=== PATIENT | female | born 1935 | race Caucasian/White ===

== ENCOUNTER 2017-02-19 13:28 | Inpatient (IN) ==
[2017-02-19] MEDS ORDERED: ONDANSETRON 4 MG/2 ML VIAL IV STA (15:08)
[2017-02-19] MEDS ORDERED: SODIUM CHLORIDE 0.9% 1,000 ML IV STA (15:08)
[2017-02-19] MEDS ORDERED: ONDANSETRON 4 MG/2 ML VIAL ONE (15:58)
[2017-02-19 16:09] LABS: Basophils % 0.2 % (0.0-0.8); Eosinophils # 0.1 10*3/uL (0.0-0.87); Hematocrit 36.6 VOL% (35.7-47.0); Hemoglobin 12.4 GM/DL (12.0-16.0); Immature Granulocytes % 0.2 %; Immature Granulocytes Absolute 0.02 #; Lymphocytes # 1.9 10*3/uL (1.4-4.0); Lymphocytes % 21.7 % (21.3-54.2); Mean Corpuscular HGB Conc 33.9 GM/DL (32-36); Mean Corpuscular Hemoglobin 28 PG (27-34); Mean Corpuscular Volume 82.8 FL (87-102); Mean Platelet Volume 10.5 FL (9.6-12.0); Monocytes # 0.6 10*3/uL (0.11-0.8); Monocytes % 7.4 % (1.7-12.7); Neutrophils % 69.5 % (38.7-73.9); Platelet Count 236 T/CUMM (130-400); Red Blood Count 4.42 MC/CUMM (3.8-5.5); White Blood Count 8.6 T/CUMM (4-12)
[2017-02-19 16:37] LABS: Alanine Aminotransferase 19 U/L (13-56); Albumin 3.6 G/DL (3.4-5.0); Alkaline Phosphatase 66 U/L (45-117); Aspartate Amino Transferase 16 U/L (0-37); Blood Urea Nitrogen 27 MG/DL (7-18); Calcium 9.5 MG/DL (8.5-10.1); Glucose 97 MG/DL (74-106); Osmolality,Calculated 266.7 MOS/KG (273-304); Potassium 3.9 MMOL/L (3.5-5.1); Sodium 131 MMOL/L (136-145); Total Protein 7.3 G/DL (6.4-8.3)
[2017-02-19 16:38] LABS: Troponin I Only < 0.015 NG/ML (0.00-0.045)
[2017-02-19] MEDS ORDERED: CYANOCOBALAMIN 1000 MCG/1 ML VIAL IM SCH (18:00)
[2017-02-19] MEDS: SODIUM CHLORIDE 0.9% 1,000 ML IV SCH (18:18)
[2017-02-19] MEDS: ASPIRIN EC 81 MG TABLET PO SCH (18:42)
[2017-02-19] MEDS: ROSUVASTATIN 20 MG TABLET PO SCH (18:42)
[2017-02-19] MEDS: POTASSIUM CHLORIDE 10 MEQ TABLET PO SCH (18:42)
[2017-02-19] MEDS: CALCIUM (CARBONATE)/VITAMIN D 600 MG-400 UNIT TABLET PO SCH (18:42)
[2017-02-19] MEDS: ESTROPIPATE 0.75 MG TABLET PO SCH (18:43)
[2017-02-19] MEDS: COENZYME Q10 100 MG CAPSULE PO SCH (18:43)
[2017-02-19 19:37] LABS: Apearance,Urine CLOUDY (Clear); Blood, Urine Negative (Negative); Glucose,Urine (UA) Negative (Negative); Hyaline Casts,Urine 4 /LPF (0-3); Ketones,Urine 5 mg/dL (Negative); Mucus,Urine Occasional /LPF (Occasional); Nitrite,Urine Negative (Negative); Protein,Urine 100 MG/DL; RBC,Urine 4 /HPF (0-4); Squamous Epithelial Cell,Urine Few /HPF (0-10); Urine Color Amber (Yellow); Urine Specific Gravity 1.017 (1.001-1.035); Urine Urobilinogen < 2.0 EU/DL (0.2-1.0); WBC,Urine 46 /HPF (0-6)
[2017-02-19 19:40] LABS: Bilirubin,Urine Small mg/dL (Negative)
[2017-02-19] MEDS: ONDANSETRON 4 MG/2 ML VIAL IV PRN (20:34)
[2017-02-19] MEDS: PANTOPRAZOLE 40 MG VIAL IV SCH (20:35)
[2017-02-19] MEDS: cefTRIAXone 1,000 MG in SYRINGE 1 EACH IV SCH (22:04)
[2017-02-20] MEDS ORDERED: PROMETHAZINE 25 MG/1 ML VIAL IM ONE (00:30)
[2017-02-20] MEDS: SODIUM CHLORIDE 0.9% 1,000 ML IV SCH ×3 (03:01→20:40)
[2017-02-20 05:30] LABS: Basophils % 0.2 % (0.0-0.8); Eosinophils # 0.2 10*3/uL (0.0-0.87); Eosinophils % 2.6 % (0.00-10.9); Hematocrit 31.8 VOL% (35.7-47.0); Hemoglobin 10.8 GM/DL (12.0-16.0); Immature Granulocytes % 0.2 %; Immature Granulocytes Absolute 0.02 #; Lymphocytes # 1.9 10*3/uL (1.4-4.0); Lymphocytes % 22.6 % (21.3-54.2); Mean Corpuscular Hemoglobin 28 PG (27-34); Mean Corpuscular Volume 82.8 FL (87-102); Mean Platelet Volume 10.4 FL (9.6-12.0); Monocytes # 0.8 10*3/uL (0.11-0.8); Monocytes % 9.7 % (1.7-12.7); Neutrophils # 5.5 10*3/uL (1.4-7.4); Neutrophils % 64.7 % (38.7-73.9); Platelet Count 298 T/CUMM (130-400); Red Blood Count 3.84 MC/CUMM (3.8-5.5); White Blood Count 8.5 T/CUMM (4-12)
[2017-02-20 06:00] LABS: Calcium 8.2 MG/DL (8.5-10.1); Osmolality,Calculated 275.1 MOS/KG (273-304)
[2017-02-20] MEDS: ONDANSETRON 4 MG/2 ML VIAL IV PRN (09:53)
[2017-02-20] MEDS: MORPHINE 2 MG/1 ML SYRINGE IV PRN (10:41)
[2017-02-20] MEDS: PANTOPRAZOLE 40 MG VIAL IV SCH ×2 (13:46→20:42)
[2017-02-20] MEDS: amLODIPine 10 MG TABLET PO SCH (16:21)
[2017-02-20] MEDS: NEBIVOLOL 10 MG TABLET PO SCH (16:21)
[2017-02-20] MEDS: cefTRIAXone 1,000 MG in SYRINGE 1 EACH IV SCH (20:48)
[2017-02-21] MEDS: COENZYME Q10 100 MG CAPSULE PO SCH ×2 (00:33→18:51)
[2017-02-21] MEDS: ASPIRIN EC 81 MG TABLET PO SCH ×2 (00:33→18:51)
[2017-02-21] MEDS: CALCIUM (CARBONATE)/VITAMIN D 600 MG-400 UNIT TABLET PO SCH ×2 (00:33→18:50)
[2017-02-21] MEDS: ESTROPIPATE 0.75 MG TABLET PO SCH ×2 (00:34→18:51)
[2017-02-21] MEDS: ROSUVASTATIN 20 MG TABLET PO SCH ×2 (00:34→18:51)
[2017-02-21] MEDS: POTASSIUM CHLORIDE 10 MEQ TABLET PO SCH ×2 (00:34→18:51)
[2017-02-21] MEDS: ONDANSETRON 4 MG/2 ML VIAL IV PRN ×2 (04:42→20:20)
[2017-02-21] MEDS: SODIUM CHLORIDE 0.9% 1,000 ML IV SCH ×3 (04:46→23:27)
[2017-02-21 06:44] LABS: Basophils % 0.3 % (0.0-0.8); Eosinophils # 0.1 10*3/uL (0.0-0.87); Hematocrit 33.2 VOL% (35.7-47.0); Immature Granulocytes % 0.3 %; Immature Granulocytes Absolute 0.03 #; Lymphocytes # 1.5 10*3/uL (1.4-4.0); Lymphocytes % 16.2 % (21.3-54.2); Mean Corpuscular HGB Conc 33.1 GM/DL (32-36); Mean Corpuscular Hemoglobin 28 PG (27-34); Mean Corpuscular Volume 83.8 FL (87-102); Mean Platelet Volume 10.6 FL (9.6-12.0); Monocytes # 0.8 10*3/uL (0.11-0.8); Monocytes % 8.1 % (1.7-12.7); Neutrophils # 6.9 10*3/uL (1.4-7.4); Neutrophils % 74.1 % (38.7-73.9); Platelet Count 299 T/CUMM (130-400); Red Blood Count 3.96 MC/CUMM (3.8-5.5); White Blood Count 9.3 T/CUMM (4-12)
[2017-02-21 07:07] LABS: Calcium 8.5 MG/DL (8.5-10.1); Osmolality,Calculated 285.1 MOS/KG (273-304); Potassium 3.6 MMOL/L (3.5-5.1)
[2017-02-21] MEDS: PROMETHAZINE 25 MG/1 ML VIAL IM PRN (08:00)
[2017-02-21] MEDS ORDERED: LIDOCAINE 2% 5 ML VIAL ONE (13:10)
[2017-02-21] MEDS ORDERED: PROPOFOL 200 MG/20 ML VIAL IV ONE (13:10)
[2017-02-21] MEDS: PANTOPRAZOLE 40 MG VIAL IV SCH ×2 (14:47→20:21)
[2017-02-21] MEDS: amLODIPine 10 MG TABLET PO SCH (14:47)
[2017-02-21] MEDS: NEBIVOLOL 10 MG TABLET PO SCH (14:47)
[2017-02-21] MEDS: MORPHINE 2 MG/1 ML SYRINGE IV PRN (20:16)
[2017-02-21] MEDS: cefTRIAXone 1,000 MG in SYRINGE 1 EACH IV SCH (20:24)
[2017-02-22] MEDS: ONDANSETRON 4 MG/2 ML VIAL IV PRN ×3 (02:34→19:52)
[2017-02-22] MEDS: SODIUM CHLORIDE 0.9% 1,000 ML IV SCH ×2 (07:26→13:18)
[2017-02-22] MEDS: amLODIPine 10 MG TABLET PO SCH (09:12)
[2017-02-22] MEDS: NEBIVOLOL 10 MG TABLET PO SCH (09:12)
[2017-02-22] MEDS: PANTOPRAZOLE 40 MG VIAL IV SCH ×2 (10:01→20:25)
[2017-02-22] MEDS: ALBUTEROL/IPRATROPIUM 3 ML NEB RESP TX SCH ×2 (15:00→19:28)
[2017-02-22] MEDS: MORPHINE 2 MG/1 ML SYRINGE IV PRN (15:13)
[2017-02-22] MEDS: ROSUVASTATIN 20 MG TABLET PO SCH (18:01)
[2017-02-22] MEDS: COENZYME Q10 100 MG CAPSULE PO SCH (18:01)
[2017-02-22] MEDS: ASPIRIN EC 81 MG TABLET PO SCH (18:01)
[2017-02-22] MEDS: POTASSIUM CHLORIDE 10 MEQ TABLET PO SCH (18:01)
[2017-02-22] MEDS: CALCIUM (CARBONATE)/VITAMIN D 600 MG-400 UNIT TABLET PO SCH (18:01)
[2017-02-22] MEDS: ESTROPIPATE 0.75 MG TABLET PO SCH (18:01)
[2017-02-22] MEDS: cefTRIAXone 1,000 MG in SYRINGE 1 EACH IV SCH (20:28)
[2017-02-22] MEDS: PROMETHAZINE 25 MG/1 ML VIAL IM PRN (22:26)
[2017-02-23] MEDS: ALBUTEROL/IPRATROPIUM 3 ML NEB RESP TX SCH ×8 (03:40→23:35)
[2017-02-23] MEDS ORDERED: cefOXitin 2,000 MG in SYRINGE 1 EACH IV ONE (06:00)
[2017-02-23 06:51] LABS: Basophils % 0.3 % (0.0-0.8); Eosinophils # 0.1 10*3/uL (0.0-0.87); Eosinophils % 0.8 % (0.00-10.9); Hematocrit 34.3 VOL% (35.7-47.0); Hemoglobin 11.6 GM/DL (12.0-16.0); Immature Granulocytes % 0.7 %; Immature Granulocytes Absolute 0.07 #; Lymphocytes # 1.4 10*3/uL (1.4-4.0); Lymphocytes % 14.4 % (21.3-54.2); Mean Corpuscular HGB Conc 33.8 GM/DL (32-36); Mean Corpuscular Hemoglobin 28 PG (27-34); Mean Corpuscular Volume 83.5 FL (87-102); Mean Platelet Volume 10.5 FL (9.6-12.0); Monocytes # 0.8 10*3/uL (0.11-0.8); Monocytes % 8.2 % (1.7-12.7); Neutrophils # 7.2 10*3/uL (1.4-7.4); Neutrophils % 75.6 % (38.7-73.9); Platelet Count 351 T/CUMM (130-400); Red Blood Count 4.11 MC/CUMM (3.8-5.5); Red Cell Distribution Width 14.6 % (9.3-17.3); White Blood Count 9.6 T/CUMM (4-12)
[2017-02-23 07:20] LABS: Calcium 9.2 MG/DL (8.5-10.1); Magnesium 1.6 MG/DL (1.8-2.4); Potassium 3.2 MMOL/L (3.5-5.1)
[2017-02-23] MEDS: POTASSIUM CHLORIDE RIDER 10 MEQ in PREMIX 1 EACH IV PRN (07:43)
[2017-02-23] MEDS: amLODIPine 10 MG TABLET PO SCH (08:24)
[2017-02-23] MEDS: NEBIVOLOL 10 MG TABLET PO SCH (08:24)
[2017-02-23] MEDS: SODIUM CHLORIDE 0.9% 1,000 ML IV SCH ×2 (08:46→20:04)
[2017-02-23] MEDS: PANTOPRAZOLE 40 MG VIAL IV SCH ×2 (08:47→20:04)
[2017-02-23] MEDS ORDERED: PROPOFOL 200 MG/20 ML VIAL IV ONE ×2 (09:45→11:09)
[2017-02-23] MEDS ORDERED: DEXAMETHASONE 10 MG/1 ML VIAL ONE ×2 (09:45→11:09)
[2017-02-23] MEDS ORDERED: LIDOCAINE 2% 5 ML VIAL ONE (09:45)
[2017-02-23] MEDS ORDERED: PHENYLEPHRINE 1 MG/10 ML SYRINGE IV ONE (09:45)
[2017-02-23] MEDS ORDERED: SUCCINYLCHOLINE 200 MG/10 ML VIAL ONE ×2 (09:45→11:10)
[2017-02-23] MEDS ORDERED: KETOROLAC 30 MG/1 ML VIAL ONE ×2 (09:45→11:10)
[2017-02-23] MEDS ORDERED: ROCURONIUM 100 MG/10 ML VIAL IV ONE ×2 (09:45→11:10)
[2017-02-23] MEDS ORDERED: NEOSTIGMINE 10 MG/10 ML VIAL ONE (09:45)
[2017-02-23] MEDS ORDERED: ONDANSETRON 4 MG/2 ML VIAL ONE ×3 (09:45→11:25)
[2017-02-23] MEDS ORDERED: SUGAMMADEX 200 MG/2 ML VIAL IV ONE (10:48)
[2017-02-23] MEDS ORDERED: fentaNYL 100 MCG/2 ML VIAL ONE (11:09)
[2017-02-23] MEDS ORDERED: SEVOFLURANE 1 UNIT/15 MINUTE INH ONE (11:10)
[2017-02-23] MEDS ORDERED: LACTATED RINGERS 1,000 ML IV ONE (11:10)
[2017-02-23] MEDS ORDERED: ACETAMINOPHEN 1,000 MG/100 ML VIAL IV ONE (11:10)
[2017-02-23 11:13] LABS: Apearance,Urine CLEAR (Clear); Bilirubin,Urine Negative (Negative); Blood, Urine Small mg/dL (Negative); Glucose,Urine (UA) Negative (Negative); Ketones,Urine 80 mg/dL (Negative); Nitrite,Urine Negative (Negative); Protein,Urine Negative; RBC,Urine <1 /HPF (0-4); Squamous Epithelial Cell,Urine Occasional /HPF (0-10); Urine Color Straw (Yellow); Urine Specific Gravity 1.009 (1.001-1.035); Urine Urobilinogen < 2.0 EU/DL (0.2-1.0); WBC,Urine 1 /HPF (0-6)
[2017-02-23] MEDS ORDERED: ONDANSETRON 4 MG/2 ML VIAL IV PRN (11:23)
[2017-02-23] MEDS: HYDROmorphone 2 MG/1 ML VIAL IV PRN ×3 (11:30→11:40)
[2017-02-23] MEDS: CALCIUM (CARBONATE)/VITAMIN D 600 MG-400 UNIT TABLET PO SCH (18:44)
[2017-02-23] MEDS: ASPIRIN EC 81 MG TABLET PO SCH (18:44)
[2017-02-23] MEDS: COENZYME Q10 100 MG CAPSULE PO SCH (18:44)
[2017-02-23] MEDS: ROSUVASTATIN 20 MG TABLET PO SCH (18:44)
[2017-02-23] MEDS: ESTROPIPATE 0.75 MG TABLET PO SCH (20:02)
[2017-02-23] MEDS: cefTRIAXone 1,000 MG in SYRINGE 1 EACH IV SCH (20:06)
[2017-02-23] MEDS: POTASSIUM CHLORIDE 10 MEQ TABLET PO SCH (20:06)
[2017-02-24] MEDS: ALBUTEROL/IPRATROPIUM 3 ML NEB RESP TX SCH ×5 (03:28→19:59)
[2017-02-24 07:10] LABS: Calcium 8.9 MG/DL (8.5-10.1); Potassium 3.1 MMOL/L (3.5-5.1)
[2017-02-24] MEDS: amLODIPine 10 MG TABLET PO SCH (08:12)
[2017-02-24] MEDS: NEBIVOLOL 10 MG TABLET PO SCH (08:12)
[2017-02-24] MEDS: MORPHINE 2 MG/1 ML SYRINGE IV PRN ×3 (08:12→21:02)
[2017-02-24] MEDS: PANTOPRAZOLE 40 MG VIAL IV SCH ×2 (08:13→20:33)
[2017-02-24] MEDS: POTASSIUM CHLORIDE RIDER 10 MEQ in PREMIX 1 EACH IV PRN (08:13)
[2017-02-24] MEDS ORDERED: DEXTROSE 5% LACTATED RINGERS 1,000 ML IV SCH (11:30)
[2017-02-24] MEDS: POTASSIUM CHLORIDE RIDER 10 MEQ in PREMIX 1 EACH IV SCH ×2 (12:11→17:35)
[2017-02-24] MEDS: POTASSIUM CHLORIDE INJ 30 MEQ in DEXTROSE 5% LACTATED RINGERS 1,000 ML IV SCH (12:11)
[2017-02-24 17:30] LABS: Hematocrit 28.9 VOL% (35.7-47.0)
[2017-02-24] MEDS: CALCIUM (CARBONATE)/VITAMIN D 600 MG-400 UNIT TABLET PO SCH ×2 (17:36→18:07)
[2017-02-24] MEDS: ROSUVASTATIN 20 MG TABLET PO SCH ×2 (17:36→18:07)
[2017-02-24] MEDS: ESTROPIPATE 0.75 MG TABLET PO SCH ×2 (17:36→18:07)
[2017-02-24] MEDS: ASPIRIN EC 81 MG TABLET PO SCH ×2 (17:36→18:07)
[2017-02-24] MEDS: COENZYME Q10 100 MG CAPSULE PO SCH (17:55)
[2017-02-24] MEDS: cefTRIAXone 1,000 MG in SYRINGE 1 EACH IV SCH (20:32)
[2017-02-25] MEDS: ALBUTEROL/IPRATROPIUM 3 ML NEB RESP TX SCH ×7 (00:49→23:40)
[2017-02-25] MEDS: POTASSIUM CHLORIDE INJ 30 MEQ in DEXTROSE 5% LACTATED RINGERS 1,000 ML IV SCH ×3 (02:52→15:53)
[2017-02-25 05:42] LABS: Basophils % 0.2 % (0.0-0.8); Eosinophils # 0.1 10*3/uL (0.0-0.87); Eosinophils % 0.5 % (0.00-10.9); Hematocrit 28.5 VOL% (35.7-47.0); Hemoglobin 9.6 GM/DL (12.0-16.0); Immature Granulocytes % 0.7 %; Immature Granulocytes Absolute 0.11 #; Lymphocytes # 1.9 10*3/uL (1.4-4.0); Lymphocytes % 12.8 % (21.3-54.2); Mean Corpuscular HGB Conc 33.7 GM/DL (32-36); Mean Corpuscular Hemoglobin 28 PG (27-34); Mean Corpuscular Volume 82.1 FL (87-102); Mean Platelet Volume 11.1 FL (9.6-12.0); Monocytes # 0.6 10*3/uL (0.11-0.8); Monocytes % 3.8 % (1.7-12.7); Platelet Count 291 T/CUMM (130-400); Red Blood Count 3.47 MC/CUMM (3.8-5.5); Red Cell Distribution Width 14.6 % (9.3-17.3); White Blood Count 14.7 T/CUMM (4-12)
[2017-02-25 06:21] LABS: Calcium 8.7 MG/DL (8.5-10.1); Magnesium 1.6 MG/DL (1.8-2.4); Osmolality,Calculated 286.8 MOS/KG (273-304)
[2017-02-25] MEDS ORDERED: MAGNESIUM SULFATE 1 GM/2 ML VIAL IM ONE (07:27)
[2017-02-25] MEDS: POTASSIUM CHLORIDE 20 MEQ/15 ML UDCUP PO SCH ×4 (08:53→22:16)
[2017-02-25] MEDS: PANTOPRAZOLE 40 MG VIAL IV SCH ×2 (08:53→22:58)
[2017-02-25] MEDS: amLODIPine 10 MG TABLET PO SCH (08:54)
[2017-02-25] MEDS: NEBIVOLOL 10 MG TABLET PO SCH (08:54)
[2017-02-25] MEDS: VALSARTAN 160 MG TABLET PO SCH (08:54)
[2017-02-25] MEDS: MORPHINE 2 MG/1 ML SYRINGE IV PRN ×2 (17:42→23:04)
[2017-02-25] MEDS: CALCIUM (CARBONATE)/VITAMIN D 600 MG-400 UNIT TABLET PO SCH (21:59)
[2017-02-25] MEDS: ESTROPIPATE 0.75 MG TABLET PO SCH (22:00)
[2017-02-25] MEDS: COENZYME Q10 100 MG CAPSULE PO SCH (22:00)
[2017-02-25] MEDS: ROSUVASTATIN 20 MG TABLET PO SCH (22:00)
[2017-02-25] MEDS: ASPIRIN EC 81 MG TABLET PO SCH (22:00)
[2017-02-25] MEDS ORDERED: POTASSIUM CHLORIDE 20 MEQ/15 ML UDCUP PO SCH (22:30)
[2017-02-25] MEDS: cefTRIAXone 1,000 MG in SYRINGE 1 EACH IV SCH (22:59)
[2017-02-26] MEDS: ALBUTEROL/IPRATROPIUM 3 ML NEB RESP TX SCH ×6 (03:04→23:30)
[2017-02-26] MEDS: POTASSIUM CHLORIDE INJ 30 MEQ in DEXTROSE 5% LACTATED RINGERS 1,000 ML IV SCH ×2 (03:43→17:17)
[2017-02-26 06:12] LABS: Calcium 8.3 MG/DL (8.5-10.1); Osmolality,Calculated 277.4 MOS/KG (273-304); Potassium 4.8 MMOL/L (3.5-5.1)
[2017-02-26] MEDS: PANTOPRAZOLE 40 MG VIAL IV SCH ×2 (08:41→21:30)
[2017-02-26] MEDS: amLODIPine 10 MG TABLET PO SCH (08:41)
[2017-02-26] MEDS: NEBIVOLOL 10 MG TABLET PO SCH (08:41)
[2017-02-26] MEDS: VALSARTAN 160 MG TABLET PO SCH (08:41)
[2017-02-26] MEDS ORDERED: BENZOCAINE/MENTHOL LOZENGE 18/BOX PO PRN (09:36)
[2017-02-26] MEDS: NYSTATIN 500,000 UNIT/5 ML UDCUP SWISH/SWAL SCH ×3 (10:15→21:29)
[2017-02-26] MEDS: MORPHINE 2 MG/1 ML SYRINGE IV PRN ×2 (13:06→21:30)
[2017-02-26] MEDS: ROSUVASTATIN 20 MG TABLET PO SCH (21:29)
[2017-02-26] MEDS: CALCIUM (CARBONATE)/VITAMIN D 600 MG-400 UNIT TABLET PO SCH (21:29)
[2017-02-26] MEDS: ESTROPIPATE 0.75 MG TABLET PO SCH (21:29)
[2017-02-26] MEDS: ASPIRIN EC 81 MG TABLET PO SCH (21:29)
[2017-02-26] MEDS: ONDANSETRON 4 MG/2 ML VIAL IV PRN (21:30)
[2017-02-26] MEDS: cefTRIAXone 1,000 MG in SYRINGE 1 EACH IV SCH (21:31)
[2017-02-26] MEDS: COENZYME Q10 100 MG CAPSULE PO SCH (22:12)
[2017-02-27] MEDS: ALBUTEROL/IPRATROPIUM 3 ML NEB RESP TX SCH ×6 (02:33→23:30)
[2017-02-27 06:13] LABS: Calcium 9.1 MG/DL (8.5-10.1); Osmolality,Calculated 269.8 MOS/KG (273-304); Potassium 4.6 MMOL/L (3.5-5.1)
[2017-02-27] MEDS: POTASSIUM CHLORIDE INJ 30 MEQ in DEXTROSE 5% LACTATED RINGERS 1,000 ML IV SCH (06:40)
[2017-02-27] MEDS: NYSTATIN 500,000 UNIT/5 ML UDCUP SWISH/SWAL SCH (08:30)
[2017-02-27] MEDS: VALSARTAN 160 MG TABLET PO SCH (08:30)
[2017-02-27] MEDS: amLODIPine 10 MG TABLET PO SCH (08:31)
[2017-02-27] MEDS: PANTOPRAZOLE 40 MG VIAL IV SCH ×3 (08:31→20:01)
[2017-02-27] MEDS: NEBIVOLOL 10 MG TABLET PO SCH (08:31)
[2017-02-27 12:09] LABS: Albumin 2.4 G/DL (3.4-5.0); Bilirubin,Total 0.5 MG/DL (0.2-1.0); Calcium 9.2 MG/DL (8.5-10.1); Osmolality,Calculated 267.1 MOS/KG (273-304); Potassium 4.4 MMOL/L (3.5-5.1); Total Protein 5.3 G/DL (6.4-8.3)
[2017-02-27] MEDS ORDERED: GLUCAGON 1 MG VIAL IM PRN (13:48)
[2017-02-27] MEDS ORDERED: DEXTROSE 50% 25 GM/50 ML VIAL IV PRN (13:48)
[2017-02-27] MEDS ORDERED: AMINO ACIDS/DEXT/LYTES 4.25-5% 2,000 ML IV SCH (14:00)
[2017-02-27] MEDS ORDERED: TRACE ELEMENTS (5) 1 ML, MULTIVITAMIN INJ 10 ML in AMINO ACIDS/DEXT/LYTES 5-15% 1,000 ML IV SCH (17:00)
[2017-02-27] MEDS: FAT EMULSION 20% 250 ML IV SCH (17:06)
[2017-02-27] MEDS: INSULIN LISPRO 100 UNIT/ML SUBCUT SCH (18:05)
[2017-02-27] MEDS: PROMETHAZINE 25 MG/1 ML VIAL IM PRN (19:36)
[2017-02-27] MEDS: MORPHINE 2 MG/1 ML SYRINGE IV PRN (19:36)
[2017-02-27] MEDS: ROSUVASTATIN 20 MG TABLET PO SCH ×2 (19:49→20:01)
[2017-02-27] MEDS: ESTROPIPATE 0.75 MG TABLET PO SCH ×2 (19:49→20:01)
[2017-02-27] MEDS: ASPIRIN EC 81 MG TABLET PO SCH ×2 (19:49→20:01)
[2017-02-27] MEDS: CALCIUM (CARBONATE)/VITAMIN D 600 MG-400 UNIT TABLET PO SCH ×2 (19:49→20:01)
[2017-02-27] MEDS: COENZYME Q10 100 MG CAPSULE PO SCH (20:01)
[2017-02-28] MEDS: INSULIN LISPRO 100 UNIT/ML SUBCUT SCH ×4 (00:04→17:48)
[2017-02-28] MEDS: ALBUTEROL/IPRATROPIUM 3 ML NEB RESP TX SCH ×3 (03:10→11:35)
[2017-02-28 07:02] LABS: Magnesium 1.9 MG/DL (1.8-2.4); Osmolality,Calculated 275.5 MOS/KG (273-304); Phosphorous 2.9 MG/DL (2.5-4.9); Potassium 3.8 MMOL/L (3.5-5.1); Prealbumin 8.6 MG/DL (20-40)
[2017-02-28] MEDS ORDERED: LACTATED RINGERS 1,000 ML IV SCH (08:00)
[2017-02-28] MEDS: PANTOPRAZOLE 40 MG VIAL IV SCH ×2 (08:47→20:22)
[2017-02-28] MEDS: NEBIVOLOL 10 MG TABLET PO SCH (08:49)
[2017-02-28] MEDS: VALSARTAN 160 MG TABLET PO SCH (08:49)
[2017-02-28] MEDS: amLODIPine 10 MG TABLET PO SCH (08:49)
[2017-02-28] MEDS: FAT EMULSION 20% 250 ML IV SCH (15:27)
[2017-02-28] MEDS ORDERED: DEXTROSE 10% 1,000 ML IV PRN (17:00)
[2017-02-28] MEDS: TRACE ELEMENTS (5) 1 ML, MULTIVITAMIN INJ 10 ML in AMINO ACIDS/DEXT/LYTES 5-15% 2,000 ML IV SCH (17:47)
[2017-02-28] MEDS: ESTROPIPATE 0.75 MG TABLET PO SCH (20:22)
[2017-02-28] MEDS: COENZYME Q10 100 MG CAPSULE PO SCH (20:22)
[2017-02-28] MEDS: ROSUVASTATIN 20 MG TABLET PO SCH (20:22)
[2017-02-28] MEDS: CALCIUM (CARBONATE)/VITAMIN D 600 MG-400 UNIT TABLET PO SCH (20:22)
[2017-02-28] MEDS: ASPIRIN EC 81 MG TABLET PO SCH (20:22)
[2017-03-01] MEDS: INSULIN LISPRO 100 UNIT/ML SUBCUT SCH ×4 (00:04→18:28)
[2017-03-01] MEDS: ALBUTEROL/IPRATROPIUM 3 ML NEB RESP TX SCH ×5 (07:27→23:50)
[2017-03-01] MEDS: VALSARTAN 160 MG TABLET PO SCH (08:40)
[2017-03-01] MEDS: NEBIVOLOL 10 MG TABLET PO SCH (08:40)
[2017-03-01] MEDS: amLODIPine 10 MG TABLET PO SCH (08:40)
[2017-03-01] MEDS: PANTOPRAZOLE 40 MG VIAL IV SCH ×2 (08:41→21:06)
[2017-03-01 09:30] LABS: Hematocrit 29.7 VOL% (35.7-47.0); Hemoglobin 9.9 GM/DL (12.0-16.0)
[2017-03-01] MEDS: ENOXAPARIN 40 MG/0.4 ML SYRINGE SUBCUT SCH (09:58)
[2017-03-01] MEDS: MORPHINE 2 MG/1 ML SYRINGE IV PRN ×2 (11:38→19:59)
[2017-03-01] MEDS: FAT EMULSION 20% 250 ML IV SCH (14:42)
[2017-03-01] MEDS: ONDANSETRON 4 MG/2 ML VIAL IV PRN (18:00)
[2017-03-01] MEDS: TRACE ELEMENTS (5) 1 ML, MULTIVITAMIN INJ 10 ML in AMINO ACIDS/DEXT/LYTES 5-15% 2,000 ML IV SCH (18:01)
[2017-03-01] MEDS ORDERED: BISACODYL 10 MG SUPP RECTAL ONE (21:03)
[2017-03-01] MEDS: ROSUVASTATIN 20 MG TABLET PO SCH (21:05)
[2017-03-01] MEDS: ASPIRIN EC 81 MG TABLET PO SCH (21:05)
[2017-03-01] MEDS: CALCIUM (CARBONATE)/VITAMIN D 600 MG-400 UNIT TABLET PO SCH (21:05)
[2017-03-01] MEDS: ESTROPIPATE 0.75 MG TABLET PO SCH (21:06)
[2017-03-01] MEDS: COENZYME Q10 100 MG CAPSULE PO SCH (21:06)
[2017-03-02] MEDS: INSULIN LISPRO 100 UNIT/ML SUBCUT SCH ×4 (01:57→18:01)
[2017-03-02] MEDS: ALBUTEROL/IPRATROPIUM 3 ML NEB RESP TX SCH ×5 (03:29→20:21)
[2017-03-02 07:09] LABS: Basophils % 0.3 % (0.0-0.8); Eosinophils # 0.5 10*3/uL (0.0-0.87); Eosinophils % 4.5 % (0.00-10.9); Immature Granulocytes % 0.5 %; Immature Granulocytes Absolute 0.05 #; Lymphocytes # 1.3 10*3/uL (1.4-4.0); Lymphocytes % 11.7 % (21.3-54.2); Mean Corpuscular HGB Conc 33.3 GM/DL (32-36); Mean Corpuscular Hemoglobin 28 PG (27-34); Mean Corpuscular Volume 84.4 FL (87-102); Mean Platelet Volume 10.6 FL (9.6-12.0); Monocytes % 8.8 % (1.7-12.7); Neutrophils % 74.2 % (38.7-73.9); Platelet Count 299 T/CUMM (130-400); Red Cell Distribution Width 14.2 % (9.3-17.3); White Blood Count 10.8 T/CUMM (4-12)
[2017-03-02] MEDS: ENOXAPARIN 40 MG/0.4 ML SYRINGE SUBCUT SCH (10:07)
[2017-03-02] MEDS: VALSARTAN 160 MG TABLET PO SCH (10:08)
[2017-03-02] MEDS: NEBIVOLOL 10 MG TABLET PO SCH (10:08)
[2017-03-02] MEDS: amLODIPine 10 MG TABLET PO SCH (10:08)
[2017-03-02] MEDS: PANTOPRAZOLE 40 MG VIAL IV SCH ×2 (10:08→21:08)
[2017-03-02] MEDS: DOCUSATE SODIUM 100 MG CAPSULE PO SCH ×2 (12:46→21:08)
[2017-03-02] MEDS: FAT EMULSION 20% 250 ML IV SCH (14:47)
[2017-03-02] MEDS: TRACE ELEMENTS (5) 1 ML, MULTIVITAMIN INJ 10 ML in AMINO ACIDS/DEXT/LYTES 5-15% 2,000 ML IV SCH (17:40)
[2017-03-02] MEDS: ASPIRIN EC 81 MG TABLET PO SCH (21:08)
[2017-03-02] MEDS: COENZYME Q10 100 MG CAPSULE PO SCH (21:08)
[2017-03-02] MEDS: ESTROPIPATE 0.75 MG TABLET PO SCH (21:08)
[2017-03-02] MEDS: ROSUVASTATIN 20 MG TABLET PO SCH (21:08)
[2017-03-02] MEDS: CALCIUM (CARBONATE)/VITAMIN D 600 MG-400 UNIT TABLET PO SCH (21:08)
[2017-03-02] MEDS: MORPHINE 2 MG/1 ML SYRINGE IV PRN (21:39)
[2017-03-03] MEDS: ALBUTEROL/IPRATROPIUM 3 ML NEB RESP TX SCH ×7 (00:03→23:29)
[2017-03-03] MEDS: INSULIN LISPRO 100 UNIT/ML SUBCUT SCH ×4 (03:36→18:09)
[2017-03-03 07:38] LABS: Basophils % 0.4 % (0.0-0.8); Eosinophils # 0.5 10*3/uL (0.0-0.87); Eosinophils % 7.2 % (0.00-10.9); Hematocrit 25.7 VOL% (35.7-47.0); Hemoglobin 8.5 GM/DL (12.0-16.0); Immature Granulocytes % 0.7 %; Immature Granulocytes Absolute 0.05 #; Lymphocytes # 1.2 10*3/uL (1.4-4.0); Lymphocytes % 16.1 % (21.3-54.2); Mean Corpuscular HGB Conc 33.1 GM/DL (32-36); Mean Corpuscular Hemoglobin 28 PG (27-34); Mean Corpuscular Volume 83.7 FL (87-102); Mean Platelet Volume 10.6 FL (9.6-12.0); Monocytes # 0.7 10*3/uL (0.11-0.8); Monocytes % 9.5 % (1.7-12.7); Neutrophils # 4.9 10*3/uL (1.4-7.4); Neutrophils % 66.1 % (38.7-73.9); Platelet Count 336 T/CUMM (130-400); Red Blood Count 3.07 MC/CUMM (3.8-5.5); Red Cell Distribution Width 14.4 % (9.3-17.3); White Blood Count 7.5 T/CUMM (4-12)
[2017-03-03 08:08] LABS: Calcium 8.5 MG/DL (8.5-10.1); Magnesium 1.9 MG/DL (1.8-2.4); Osmolality,Calculated 279.7 MOS/KG (273-304); Phosphorous 3.9 MG/DL (2.5-4.9); Potassium 4.1 MMOL/L (3.5-5.1); Prealbumin 11.2 MG/DL (20-40)
[2017-03-03] MEDS: amLODIPine 10 MG TABLET PO SCH (09:23)
[2017-03-03] MEDS: DOCUSATE SODIUM 100 MG CAPSULE PO SCH ×2 (09:23→20:08)
[2017-03-03] MEDS: PANTOPRAZOLE 40 MG VIAL IV SCH ×2 (09:23→20:08)
[2017-03-03] MEDS: VALSARTAN 160 MG TABLET PO SCH (09:23)
[2017-03-03] MEDS: NEBIVOLOL 10 MG TABLET PO SCH (09:23)
[2017-03-03] MEDS: POLYETHYLENE GLYCOL POWDER 17 GM PACK PO SCH (09:27)
[2017-03-03] MEDS: ENOXAPARIN 40 MG/0.4 ML SYRINGE SUBCUT SCH (09:27)
[2017-03-03] MEDS: TRACE ELEMENTS (5) 1 ML, MULTIVITAMIN INJ 10 ML in AMINO ACIDS/DEXT/LYTES 5-15% 2,000 ML IV SCH (17:20)
[2017-03-03] MEDS: FAT EMULSION 20% 250 ML IV SCH (17:20)
[2017-03-03] MEDS: MORPHINE 2 MG/1 ML SYRINGE IV PRN (17:21)
[2017-03-03] MEDS: CALCIUM (CARBONATE)/VITAMIN D 600 MG-400 UNIT TABLET PO SCH (20:08)
[2017-03-03] MEDS: ASPIRIN EC 81 MG TABLET PO SCH (20:08)
[2017-03-03] MEDS: BISACODYL 10 MG SUPP RECTAL SCH (20:08)
[2017-03-03] MEDS: COENZYME Q10 100 MG CAPSULE PO SCH (20:08)
[2017-03-03] MEDS: ESTROPIPATE 0.75 MG TABLET PO SCH (20:08)
[2017-03-03] MEDS: ROSUVASTATIN 20 MG TABLET PO SCH (20:08)
[2017-03-04] MEDS: INSULIN LISPRO 100 UNIT/ML SUBCUT SCH ×4 (00:26→17:34)
[2017-03-04] MEDS: ALBUTEROL/IPRATROPIUM 3 ML NEB RESP TX SCH ×6 (04:08→23:06)
[2017-03-04] MEDS: ENOXAPARIN 40 MG/0.4 ML SYRINGE SUBCUT SCH (08:54)
[2017-03-04] MEDS: VALSARTAN 160 MG TABLET PO SCH (08:55)
[2017-03-04] MEDS: DOCUSATE SODIUM 100 MG CAPSULE PO SCH (08:55)
[2017-03-04] MEDS: amLODIPine 10 MG TABLET PO SCH (08:55)
[2017-03-04] MEDS: NEBIVOLOL 10 MG TABLET PO SCH (08:55)
[2017-03-04] MEDS: POLYETHYLENE GLYCOL POWDER 17 GM PACK PO SCH (08:56)
[2017-03-04] MEDS: PANTOPRAZOLE 40 MG VIAL IV SCH ×2 (08:56→20:35)
[2017-03-04] MEDS: BISACODYL 10 MG SUPP RECTAL SCH ×2 (08:56→20:36)
[2017-03-04] MEDS: FAT EMULSION 20% 250 ML IV SCH (16:20)
[2017-03-04] MEDS: TRACE ELEMENTS (5) 1 ML, MULTIVITAMIN INJ 10 ML in AMINO ACIDS/DEXT/LYTES 5-15% 2,000 ML IV SCH (16:47)
[2017-03-04] MEDS: MORPHINE 2 MG/1 ML SYRINGE IV PRN (20:36)
[2017-03-04] MEDS: ROSUVASTATIN 20 MG TABLET PO SCH (20:36)
[2017-03-04] MEDS: CALCIUM (CARBONATE)/VITAMIN D 600 MG-400 UNIT TABLET PO SCH (20:36)
[2017-03-04] MEDS: ESTROPIPATE 0.75 MG TABLET PO SCH (20:36)
[2017-03-04] MEDS: COENZYME Q10 100 MG CAPSULE PO SCH (20:36)
[2017-03-04] MEDS: ASPIRIN EC 81 MG TABLET PO SCH (20:36)
[2017-03-05] MEDS: INSULIN LISPRO 100 UNIT/ML SUBCUT SCH ×4 (00:56→17:14)
[2017-03-05 03:21] LABS: Basophils % 0.4 % (0.0-0.8); Eosinophils # 0.5 10*3/uL (0.0-0.87); Eosinophils % 5.8 % (0.00-10.9); Hematocrit 25.2 VOL% (35.7-47.0); Hemoglobin 8.3 GM/DL (12.0-16.0); Immature Granulocytes % 0.6 %; Immature Granulocytes Absolute 0.05 #; Lymphocytes # 1.5 10*3/uL (1.4-4.0); Lymphocytes % 18.3 % (21.3-54.2); Mean Corpuscular HGB Conc 32.9 GM/DL (32-36); Mean Corpuscular Hemoglobin 28 PG (27-34); Mean Corpuscular Volume 85.4 FL (87-102); Mean Platelet Volume 10.4 FL (9.6-12.0); Monocytes # 0.6 10*3/uL (0.11-0.8); Monocytes % 7.8 % (1.7-12.7); Neutrophils # 5.4 10*3/uL (1.4-7.4); Neutrophils % 67.1 % (38.7-73.9); Platelet Count 353 T/CUMM (130-400); Red Blood Count 2.95 MC/CUMM (3.8-5.5); Red Cell Distribution Width 14.4 % (9.3-17.3); White Blood Count 8.1 T/CUMM (4-12)
[2017-03-05] MEDS: ALBUTEROL/IPRATROPIUM 3 ML NEB RESP TX SCH ×5 (03:48→20:29)
[2017-03-05] MEDS: POLYETHYLENE GLYCOL POWDER 17 GM PACK PO SCH (08:25)
[2017-03-05] MEDS: amLODIPine 10 MG TABLET PO SCH (08:25)
[2017-03-05] MEDS: ENOXAPARIN 40 MG/0.4 ML SYRINGE SUBCUT SCH (08:25)
[2017-03-05] MEDS: NEBIVOLOL 10 MG TABLET PO SCH (08:25)
[2017-03-05] MEDS: VALSARTAN 160 MG TABLET PO SCH (08:25)
[2017-03-05] MEDS ORDERED: DOCUSATE SODIUM 100 MG CAPSULE PO SCH (09:00)
[2017-03-05] MEDS: PANTOPRAZOLE 40 MG TABLET PO SCH ×2 (10:30→20:51)
[2017-03-05] MEDS: FAT EMULSION 20% 250 ML IV SCH (14:56)
[2017-03-05] MEDS: TRACE ELEMENTS (5) 1 ML, MULTIVITAMIN INJ 10 ML in AMINO ACIDS/DEXT/LYTES 5-15% 2,000 ML IV SCH (17:15)
[2017-03-05] MEDS: ESTROPIPATE 0.75 MG TABLET PO SCH (20:51)
[2017-03-05] MEDS: MORPHINE 2 MG/1 ML SYRINGE IV PRN (20:51)
[2017-03-05] MEDS: CALCIUM (CARBONATE)/VITAMIN D 600 MG-400 UNIT TABLET PO SCH (20:51)
[2017-03-05] MEDS: ASPIRIN EC 81 MG TABLET PO SCH (20:51)
[2017-03-05] MEDS: COENZYME Q10 100 MG CAPSULE PO SCH (20:51)
[2017-03-05] MEDS: ROSUVASTATIN 20 MG TABLET PO SCH (20:51)
[2017-03-06] MEDS: INSULIN LISPRO 100 UNIT/ML SUBCUT SCH ×2 (00:20→06:02)
[2017-03-06] MEDS: ALBUTEROL/IPRATROPIUM 3 ML NEB RESP TX SCH ×6 (00:36→20:03)
[2017-03-06 07:22] LABS: Calcium 8.9 MG/DL (8.5-10.1); Magnesium 2.2 MG/DL (1.8-2.4); Osmolality,Calculated 274.8 MOS/KG (273-304); Phosphorous 4.4 MG/DL (2.5-4.9); Potassium 4.3 MMOL/L (3.5-5.1); Prealbumin 16.9 MG/DL (20-40)
[2017-03-06] MEDS ORDERED: SODIUM CHLORIDE 0.9% 1,000 ML IV PRN (08:19)
[2017-03-06] MEDS ORDERED: TUBERCULIN SKIN TEST 0.1 ML SYRINGE INTRADERM ONE (09:00)
[2017-03-06] MEDS: PANTOPRAZOLE 40 MG TABLET PO SCH ×2 (09:07→21:40)
[2017-03-06] MEDS: VALSARTAN 160 MG TABLET PO SCH (09:07)
[2017-03-06] MEDS: amLODIPine 10 MG TABLET PO SCH (09:07)
[2017-03-06] MEDS: NEBIVOLOL 10 MG TABLET PO SCH (09:07)
[2017-03-06] MEDS: POLYETHYLENE GLYCOL POWDER 17 GM PACK PO SCH (09:08)
[2017-03-06] MEDS: ENOXAPARIN 40 MG/0.4 ML SYRINGE SUBCUT SCH (09:08)
[2017-03-06] MEDS: MORPHINE 2 MG/1 ML SYRINGE IV PRN (13:04)
[2017-03-06] MEDS: ASPIRIN EC 81 MG TABLET PO SCH (21:38)
[2017-03-06] MEDS: CALCIUM (CARBONATE)/VITAMIN D 600 MG-400 UNIT TABLET PO SCH (21:39)
[2017-03-06] MEDS: COENZYME Q10 100 MG CAPSULE PO SCH (21:39)
[2017-03-06] MEDS: ESTROPIPATE 0.75 MG TABLET PO SCH (21:40)
[2017-03-06] MEDS: ROSUVASTATIN 20 MG TABLET PO SCH (21:40)
[2017-03-07] MEDS: ALBUTEROL/IPRATROPIUM 3 ML NEB RESP TX SCH ×4 (00:36→11:51)
[2017-03-07 06:58] LABS: Basophils % 0.5 % (0.0-0.8); Eosinophils # 0.5 10*3/uL (0.0-0.87); Eosinophils % 7.2 % (0.00-10.9); Hematocrit 33.6 VOL% (35.7-47.0); Immature Granulocytes % 0.3 %; Immature Granulocytes Absolute 0.02 #; Mean Corpuscular HGB Conc 32.7 GM/DL (32-36); Mean Corpuscular Hemoglobin 28 PG (27-34); Mean Corpuscular Volume 85.7 FL (87-102); Mean Platelet Volume 10.1 FL (9.6-12.0); Monocytes # 0.6 10*3/uL (0.11-0.8); Monocytes % 8.3 % (1.7-12.7); Neutrophils # 4.2 10*3/uL (1.4-7.4); Neutrophils % 56.7 % (38.7-73.9); Platelet Count 381 T/CUMM (130-400); Red Cell Distribution Width 14.6 % (9.3-17.3); White Blood Count 7.5 T/CUMM (4-12)
[2017-03-07 07:20] LABS: Red Blood Count 3.92 MC/CUMM (3.8-5.5)
[2017-03-07 07:22] LABS: Calcium 9.1 MG/DL (8.5-10.1); Osmolality,Calculated 277.4 MOS/KG (273-304); Potassium 4.9 MMOL/L (3.5-5.1)
[2017-03-07] MEDS: PANTOPRAZOLE 40 MG TABLET PO SCH (09:19)
[2017-03-07] MEDS: VALSARTAN 160 MG TABLET PO SCH (09:19)
[2017-03-07] MEDS: NEBIVOLOL 10 MG TABLET PO SCH (09:19)
[2017-03-07] MEDS: amLODIPine 10 MG TABLET PO SCH (09:19)
[2017-03-07] MEDS: ENOXAPARIN 40 MG/0.4 ML SYRINGE SUBCUT SCH (09:20)
[2017-03-07] MEDS: POLYETHYLENE GLYCOL POWDER 17 GM PACK PO SCH (09:20)
[2017-03-07 13:59] VITALS: BP 140/71
== END 2017-03-07 14:53 | DRG 329 ==
LOC: N.ED 13:28 → SUATTDRO 17:04 → N.EDINP 17:04 → N.5E 17:55
PROVIDERS: ADMIT Internal Medicine